=== PATIENT | female | born 1960 | race Caucasian/White ===

== ENCOUNTER 2018-03-01 17:29 | Inpatient (IN) | END 2018-03-06 18:30 | disposition home or self-care (01) | DRG 689 ==

== ENCOUNTER 2018-12-23 09:25 | Emergency (ER) | payer OTHER ==
[~2018-12-23] VITALS: Ht 177.8 cm; Wt 78.0 kg
[~2018-12-23 09:25] MED LIST: DIVA-16 PO; FOLI-49 PO; OLAN5TAB5 PO; QUET300T18 PO; SULF1TAB31 PO; TRA100 PO
[2018-12-23 09:28] VITALS: Ht 177.8 cm; Wt 78.0 kg
--- NOTE | 2018-12-23 10:32 | ERD ---
ER Documentation Chief Complaint Chief Complaint R. foot pain/swelling X 1 week [facility] cause Denies DM HPI 58-year-old female with a history of multiple sclerosis and schizophrenia presents to the ED for evaluation of 1 week history of worsening right lower leg swelling. ROS All systems reviewed and are negative except as per history of present illness. Medications Home Meds Reported Medications Acetaminophen* (Pharbetol*) 325 Mg Tablet, 650 MG PO Q4H PRN for MILD PAIN LEVEL 1-3, TAB 12/23/18 Lorazepam* (Lorazepam*) 0.5 Mg Tablet, 0.5 MG PO Q4H PRN for ANXIETY, TAB 12/23/18 Olanzapine* (Olanzapine* ODT) 5 Mg Tab.rapdis, 5 MG PO QHS, #30 TAB 12/23/18 Trazodone Hcl* (Trazodone Hcl*) 100 Mg Tablet, 100 MG PO QHS, #30 TAB 12/23/18 Folic Acid* (Folic Acid*) 1 Mg Tablet, 1 MG PO DAILY, TAB 12/23/18 Sennosides* (Senna Lax*) 8.6 Mg Tablet, 1 TAB PO BID, TAB 12/23/18 Guanfacine Hcl* (Guanfacine Hcl*) 1 Mg Tablet, 1 MG PO HS, TAB 12/23/18 Divalproex Sodium* (Depakote*) 500 Mg Tablet.dr, 500 MG PO TID, #90 TAB 12/23/18 Discontinued Reported Medications Trazodone Hcl* (Trazodone Hcl*) 100 Mg Tablet, 100 MG PO QHS, #30 TAB 03/01/18 Olanzapine* (Zyprexa*) 5 Mg Tablet, 5 MG PO QHS, #30 TAB 03/01/18 Quetiapine Fumarate* (Quetiapine Fumarate*) 300 Mg Tablet, 300 MG PO BID, TAB 03/01/18 Folic Acid* (Folic Acid*) 1 Mg Tablet, 1 MG PO DAILY, TAB 03/01/18 Divalproex Sodium* (Divalproex Sodium*) 500 Mg Tablet.dr, 500 MG PO TID, #90 TAB 03/01/18 Discontinued Scripts Sulfamethoxazole/Trimethoprim* (Bactrim Ds* Tablet) 1 Each Tablet, 1 TAB PO BID for 5 Days, #10 TAB Prov:SAI RAMACHANDRAN 03/06/18 Allergies Allergies: Coded Allergies: No Known Allergy (Unverified , 12/23/18) PMhx/Soc History of Surgery: No Anesthesia Reaction: No Hx Neurological Disorder: Yes (muscle weakness, muscle dystrophy) Hx Respiratory Disorders: No (unable to assess. Patient alert and oriented x1 to name only.) Hx Cardiac Disorders: No (unable to assess. Patient alert and oriented x1 to name only.) Hx Psychiatric Problems: Yes (schizophrenia) Hx Miscellaneous Medical Probl: No (CHRONIC PSYCHAITRIC ILLNESS, RECURRENT UTI, SCHIZOPHREINA) FmHx No family history relevant to presenting complaint Physical Exam Vitals Vital Signs Date Temp Pulse Resp B/P (MAP) Pulse Ox O2 O2 Flow FiO2 Time Delivery Rate 12/23/18 63 16 87/67 (74) 96 Room Air 11:55 12/23/18 97.8 112 19 219/139 97 09:28 (165) Physical Exam Const: No acute distress Head: Atraumatic Eyes: Normal Conjunctiva ENT: Normal External Ears, Nose and Mouth. Neck: Full range of motion. No meningismus. Resp: Clear to auscultation bilaterally Cardio: Regular rate and rhythm, no murmurs Abd: Soft, non tender, non distended. Normal bowel sounds Skin: No petechiae or rashes Back: No midline or flank tenderness Ext: No cyanosis, or edema Neur: Awake and alert Psych: Normal Mood and Affect Result Diagram: 12/23/18 1047 12/23/18 1047 Results 24 hrs Laboratory Tests Test 12/23/18 10:47 12/23/18 11:17 White Blood Count 6.2 10^3/ul Red Blood Count 4.24 10^6/ul Hemoglobin 13.1 g/dl Hematocrit 40.6 % Mean Corpuscular Volume 95.8 fl Mean Corpuscular Hemoglobin 30.9 pg Mean Corpuscular Hemoglobin Concent 32.3 g/dl Red Cell Distribution Width 13.8 % Platelet Count 266 10^3/UL Mean Platelet Volume 9.7 fl Immature Granulocytes % 0.500 % Neutrophils % 57.1 % Lymphocytes % 31.8 % Monocytes % 9.2 % Eosinophils % 0.8 % Basophils % 0.6 % Nucleated Red Blood Cells % 0.0 /100WBC Immature Granulocytes # 0.030 10^3/ul Neutrophils # 3.5 10^3/ul Lymphocytes # 2.0 10^3/ul Monocytes # 0.6 10^3/ul Eosinophils # 0.1 10^3/ul Basophils # 0.0 10^3/ul Nucleated Red Blood Cells # 0.0 10^3/ul Sodium Level 143 mmol/L Potassium Level 3.7 mmol/L Chloride Level 106 mmol/L Carbon Dioxide Level 30 mmol/L Anion Gap 7 Blood Urea Nitrogen 18 mg/dl Creatinine 0.61 mg/dl Est Glomerular Filtrat Rate mL/min > 60 mL/min Glucose Level 113 mg/dl Calcium Level 10.0 mg/dl POC Venous Lactate 1.4 mmol/L Procedures/MDM DOCUMENTS REVIEWED: ED nurse, prior ED, prior records LAB INTERPRETATION: CBC to evaluate for anemia, leukocytosis and thrombocytopenia is unremarkable. Chemistry reveals no evidence of electrolyte abnormalities, renal insufficiency, hyperbilirubinemia or transaminitis. IMAGING: Right foot: PA lateral and oblique. Soft tissue swelling but no fracture or subluxation. No foreign body. No subcutaneous emphysema. Right ankle: 3 views. No fracture, subluxation or foreign body. Right tib-fib: PA and lateral. No fracture, subluxation, soft tissue swelling or foreign body. Right lower extremity venous Doppler: No DVT ED COURSE: [] REEXAMINATION/REEVALUATION: Time: [] MEDICAL DECISION MAKIN-year-old female with a history of multiple sclerosis and schizophrenia presents to the ED for evaluation of 1 week history of worsening, atraumatic right lower leg swelling. No radiographic evidence of fracture or foreign body. Possible cellulitis without signs of ascending lymphangitis or necrotizing fasciitis. Stable for discharge with precautionary instructions and outpatient follow-up as counseled. Counseled patient[ and family] regarding diagnostic workup, diagnosis and need for followup. Understands to return to ED if symptoms recur, worsen or any other concerns. Departure Diagnosis: Primary Impression: Swelling of right lower extremity Condition: Stable RIO ALFONSO MD December 23, 2018 10:32
[2018-12-23] MEDS ORDERED: DIVA-48 PO (11:35)
[2018-12-23] MEDS ORDERED: GUAN1TAB28 PO (11:36)
[2018-12-23] MEDS ORDERED: FOLI-49 PO (11:37)
[2018-12-23] MEDS ORDERED: SENN-120 PO (11:37)
[2018-12-23] MEDS ORDERED: TRA100 PO (11:38)
[2018-12-23] MEDS ORDERED: OLAN5TAB36 PO (11:39)
[2018-12-23] MEDS ORDERED: LORA0.5T PO (11:39)
[2018-12-23] MEDS ORDERED: [UNRECOGNIZED DRUG - CODE] PO (11:41)
[2018-12-23] MEDS ORDERED: CLIN300C10 PO (15:17)
[2018-12-23 15:42] VITALS: BP 109/68; PULSE 61; RESP 18
== END 2018-12-23 15:44 | disposition home or self-care (01) ==
LOC: E/R 09:25
DX: R22.41 Localized swelling, mass and lump, right lower limb (principal); R40.2142 Coma scale, eyes open, spontaneous, at arrival to emergency department; R40.2362 Coma scale, best motor response, obeys commands, at arrival to emergency department; R40.2242 Coma scale, best verbal response, confused conversation, at arrival to emergency department
CPT/HCPCS: 36415; 73590; 73610; 73630; 80048; 83605; 85025; 87040; 93971; Z7502; Z7610